=== PATIENT | female | born 1950 | race Caucasian/White ===

== ENCOUNTER → 2018-07-22 13:41 | Outpatient (CLI) | payer MEDICARE, OTHER, SELFPAY ==
--- NOTE | 2018-07-22 13:47 | ECHOD_ITS ---
Reason For Study: EXERTIONAL DYSPNEA Procedure This was a 2D Doppler, Color Flow transthoracic echocardiogram. Exam performed in department. Left Ventricle Normal size and thickness. The estimated ejection fraction is 65 %. Stage 2 diastolic dysfunction. No regional wall motion abnormalities noted. Right Ventricle Normal size and thickness. Normal systolic function. Atria Normal left atrium. Normal right atrium. Normal atrial septum. Mitral Valve The mitral valve is structurally normal. No prolapse or stenosis seen. Trivial mitral valve insufficiency. Tricuspid Valve Normal tricuspid valve. Trivial tricuspid valve insufficiency. Right ventricular systolic pressure estimated to be 34 mmHg. Aortic Valve Trisinus/trileaflet aortic valve. Mild diffuse aortic valve thickening. Trivial aortic valve insufficiency. Pulmonic Valve Normal pulmonic valve. Great Vessels Normal aortic root. Normal arch. The inferior vena cava is dilated. Inferior vena cava collapse with sniff. Pericardium/Pleural No pericardial effusion. MMode/2D Measurements & Calculations LVIDd: 3.9 cm IVSd: 0.72 cm Ao root diam: 2.6 cm LVIDs: 2.5 cm LVPWd: 0.81 cm LA dimension: 2.9 cm RVDd: 3.0 cm FS: 34.9 % LAV(MOD-bp): 43.3 ml LVAd ap4: 24.7 cm2 SV(MOD-sp4): 45.0 ml LAV(MOD-bp) Indexed: 25.5 ml/m2 EDV(MOD-sp4): 68.0 ml LAV(MOD-sp2): 41.4 ml EDV(sp4-el): 71.5 ml LAV(MOD-sp4): 37.4 ml LVAs ap4: 12.6 cm2 ESV(MOD-sp4): 23.0 ml ESV(sp4-el): 23.3 ml EF(MOD-sp4): 66.2 % EF(sp4-el): 67.4 % SV(sp4-el): 48.2 ml LA A4 area: 14.7 cm2 RA A4 area: 11.9 cm2 Time Measurements MV dec time: 0.17 sec Doppler Measurements & Calculations MV E max elieser: 125.2 cm/sec Lat Peak E' Elieser: 12.7 cm/sec Med Peak E' Elieser: 12.3 cm/sec MV A max elieser: 85.3 cm/sec E/E' lat: 9.9 E/E' med: 10.1 MV E/A: 1.5 Ao V2 max: 157.0 cm/sec LV V1 max: 126.6 cm/sec PA V2 max: 88.9 cm/sec Ao max P.9 mmHg LV V1 max P.4 mmHg TR max elieser: 262.3 cm/sec TR max P.6 mmHg Interpretation Summary The estimated ejection fraction is 65 %. Stage 2 diastolic dysfunction. Trivial mitral valve insufficiency. Right ventricular systolic pressure estimated to be 34 mmHg. There is no comparison study available. Ordering Physician: Toni Gallagher Referring Physician: FADY ROOT Performed By: Sharmaine Smith RDCS
== END ==
PROVIDERS: Family Provider Family Medicine; PCP Family Medicine; Visit Provider Surgery
DX: R06.09 Other forms of dyspnea (principal); I34.1 Nonrheumatic mitral (valve) prolapse
CPT/HCPCS: 93306

== ENCOUNTER → 2018-08-11 09:24 | Outpatient (CLI) | payer MEDICARE, OTHER, SELFPAY ==
--- NOTE | 2018-08-11 09:25 | STE_ITS ---
Stress Results Protocol: Williams Protocol Maximum Predicted HR: 153 bpm Target HR: 130 bpm% Max imum Predicted HR: 93 % DurationHeart Rate Stage (mm:ss) (bpm) BP BASELINE 68 144/58 STAGE 1 3:00 10 0 160/52 STAGE 2 3:00 11 7 180/40 STAGE 4 2:00 14 2 / RECOVERY 67 138/68 Stress Duration: 8:00 mm:ss Maximum Stress HR: 142 bpm Baseline Echocardiogram Findings The estimated ejection fraction is 65 %. Stress Echo Wall motion Data Resting WMIntermediate WMStress WM Resting Wall Motion No regional wall motion abnormalities noted. EKG Data The baseline ECG displays normal sinus rhythm. The patient exercised according to the regular Williams protocol for a total duration of 8:00. The maximum heart rate attained was 146 beats per minute. This was 95% of maximum predicted heart rate. The patient exercised into stage 3 of the Williams protocol. During stress, there were no ST or T wave changes noted to suggest ischemia. No clinical angina was noted. Interpretation Summary The estimated ejection fraction is 65 %. Normal, adequate, treadmill echocardiogram. Negative for ischemia by EKG and echocardiographic criteria. No anginal symptoms noted. Rare PACs noted during exercise and into recovery. Appropriate blood pressure response to exercise. Average exercise capacity for age. Test terminated due to the attainment of target heart rate and dyspnea. Final LVEF is 75%. No complications. Ordering Physician: Kwesi Chow Referring Physician: Kwesi Chow
== END ==
PROVIDERS: Family Provider Family Medicine; PCP Family Medicine; Referring Provider Internal Medicine Cardiovascular Disease; Visit Provider Internal Medicine Cardiovascular Disease
DX: I10 Essential (primary) hypertension (principal); R06.09 Other forms of dyspnea
CPT/HCPCS: 93017; 93350

== ENCOUNTER 2018-10-21 08:24 | Day surgery (SDC) | payer MEDICARE, OTHER, SELFPAY ==
[2018-10-14 10:09] VITALS: BP 134/73; PULSE 58; RESP 16; TEMP 36.1; O2SAT 97; BMI 22.2
[2018-10-14 10:33] LABS: Hematocrit 39.4 % (37-47); Hemoglobin 12.8 g/dl (12.0-15.0); Mean Corp Hgb Conc 32.5 g/gl (32-36); Mean Corpuscular Hgb 29.2 pg (27.0-32.0); Mean Platelet Vol. 10.1 fl (6.2-12.0); Platelet Count 176 K/mm3 (150-450); RBC Distribution Width CV 13.9 % (11.6-14.6); Red Blood Count 4.38 M/mm3 (4.2-5.4); White Blood Count 4.6 K/mm3 (4.4-11.0)
[2018-10-14 10:36] LABS: Scan Indicated on CBC? Y/N NO
[2018-10-14 10:42] LABS: Anion Gap 4 (5-15); BUN 9 mg/dL (7-18); BUN/Creat Ratio 12.1 RATIO (10-20); Calcium,Total 8.9 mg/dL (8.5-10.1); Chloride 98 mmol/L (98-107); Creatinine, Serum 0.74 mg/dL (0.55-1.02); EST Glomerular Filtration Rate 83 mL/min (>60); Est Glom Filt Rate - Afr Amer 100 mL/min (>60); Estimated Creatinine Clearance 53.09 ml/min; Glucose 97 mg/dL (74-106); Potassium 4.3 mmol/L (3.5-5.1); Sodium Level 132 mmol/L (136-145)
--- NOTE | 2018-10-19 12:32 | HP.PCM_ITS ---
Problem List (1) Varicose veins with inflammation Status: Chronic (2) Leg pain Status: Chronic Qualifiers: Laterality: left Qualified Code(s): M79.605 - Pain in left leg (3) Venous insufficiency (chronic) (peripheral) Status: Chronic History of Present Illness Date of Admission: 10/21/18 Chief Complaint: Chronic venous insufficiency, varicose veins with inflammation, leg pain?left lower extremity The patient is a 68 year old F with a long-standing history of chronic venous insufficiency, varicose veins with inflammation, and leg pain involving her left lower extremity. For many years, the patient has had pain, aching, discomfort, burning, and stinging in her left lower extremity. Her symptoms have become increasingly more severe. The patient denies a history of thrombophlebitis. She underwent bilateral lower extremity vein stripping in the , though the specific nature of the procedure is uncertain. 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 The implications of this diagnosis have been discussed with patient in detail. The options of management have been fully explained. Conservative treatment measures have been implemented, which have included leg elevation, avoidance of idle standing and sitting, graduated compression stockings, weight control measures, active lifestyle, [id number] analgesics, etc. Despite these measures, the patient has remained symptomatic, with symptoms which have adversely affected her daily activities, quality of life, and job functions.] Past Medical History Past Medical History (Chronic Problems): Chronic Problems (Last Reviewed 08/05/18 @ 10:31 by Hyacinth Mckinnon) Varicose veins with inflammation (Chronic) Leg pain (Chronic) Venous insufficiency (chronic) (peripheral) (Chronic) Hypertension (Chronic) Mitral valve insufficiency (Chronic) Trivial per echo 07/22/2018, RVSP 34 mmhg Diastolic dysfunction (Chronic) Stage II per echo 07/22/2018 Medical History: Medical History (Last Reviewed 08/05/18 @ 10:31 by Hyacinth Mckinnon) Venous insufficiency (chronic) (peripheral) (Chronic) I87.2 Hypertension (Chronic) I10 Mitral valve insufficiency (Chronic) I34.0 Trivial per echo 07/22/2018, RVSP 34 mmhg Diastolic dysfunction (Chronic) I51.9 Stage II per echo 07/22/2018 Dyspnea on exertion (Acute) R06.09 History of hysterectomy Z90.710 Allergies codeine Adverse Reaction (Severe, Verified 10/14/18 09:52) Severe headaches Home Medications: Ambulatory Orders Medication Instructions Recorded atenolol 50 mg tablet 50 mg PO DAILY 08/05/18 cholecalciferol (vitamin D3) 1,000 1,000 unit PO DAILY 08/05/18 unit tablet Aspirin [Aspirin, Baby] 81 mg PO DAILY@0800 10/14/18 Surgical History: Surgical History (Last Reviewed 08/05/18 @ 10:31 by Hyacinth Mckinnon) History of breast surgery Z98.890 History of tonsillectomy Z90.89 Surgical History: hysterectomy, tonsillectomy, - - Right breast biopsy; the patient is a Ab0. 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 Smoking Status: Never smoker Tobacco Use: Non-smoker Alcohol: None Drugs: None Review of Systems Constitutional: Denies: Chills, Fever, Weight Change HEENT: Denies: Head Aches, Sinus Congestion, Sinus Drainage Cardiovascular: Denies: Chest Pain, Palpitations Respiratory: Denies: Cough, Shortness of breath at rest, Sputum production Gastrointestinal: Denies: Abdominal Pain, Nausea, Vomiting Genitourinary: Denies: Dysuria Musculoskeletal: Denies: Joint Pain, Joint Tenderness Skin: Denies: Rash, Wounds Neurological: Denies: Numbness, Tingling, Focal weakness Psychiatric: Denies: Anxiety, Depression, Homicidal Ideations, Suicidal Ideations Hematologic/ Lymphatic: Denies: Easy Bruising, Easy Bleeding VTE Information - Inpt Only VTE Present on Admission: No VTE Mechan Device Prophylaxis: SCD's - Right VTE Pharm Prophylaxis ordered?: Yes - Physical Exam General: Alert, Oriented x3, Cooperative, No apparent distress, Well developed, Well nourished HEENT: Atraumatic, PERRLA, EOMI, Normocephalic Oral: Moist Mucosa, No Gingival or Mucosal Lesions/ Ulcerations Neck: Supple, No JVD, Negative Carotid Bruits, No Nodes, No Nuchal Rigidity, Trachea Midline Lungs: Clear to auscultation, Normal air movement, No rhonchi, No wheeze, No rales Cardiovascular: Regular rate, Regular Rhythm, Normal S1, Normal S2, No murmurs Abdomen: Bowel Sounds Present, Soft, Non Tender Extremities: No clubbing, No cyanosis, No edema, Capillary Refill Less than 3 Seconds, No Calf Tenderness, - - Full range of motion; peripheral extremities are warm and well-perfused; multiple large varicosities are noted in the lower extremities bilaterally Skin: No rashes, No breakdown Musculoskeletal: No Tenderness to Palpation of Joints or Extremities Neurological: Cranial nerves II-XII grossly intact, Neuro grossly intact Psych/Mental Status: Normal Affect, Appropriate, Alert and oriented to time, place, person, mood and affect Vital Signs Temp Pulse Resp BP Pulse Ox 97 F L 58 L 16 134/73 H 97 10/14/18 10:10/14/18 10:10/14/18 10:10/14/18 10:10/14/18 10:09 Oxygen Delivery Method Room Air Weight: 142 lb 3.17 oz Body Mass Index (BMI) 22.2 Assessment/Plan All Active Problems (Last Reviewed 08/05/18 @ 10:31 by Hyacinth Mckinnon) Dyspnea on exertion (Acute) Impression: This is a 68-year-old female with a long-standing history of chronic venous insufficiency, varicose veins with inflammation, and leg pain involving her left lower extremity. Despite conservative treatment measures, the patient has remained symptomatic, with symptoms which have adversely affected her daily activities, quality of life, and job functions. The indications and risks of endovenous laser ablation of the left great saphenous vein and the left small s aphenous vein have been discussed with the patient in detail. Plan: This 68-year-old female is to be admitted electively for the purpose of endovenous laser ablation of the left great saphenous vein and the left small saphenous vein. The indications and risks of the procedure have been discussed with the patient in detail. The preprocedure consent process has been undertaken.
[2018-10-21 09:06] VITALS: BP 148/64; PULSE 56; RESP 16; TEMP 36.2; O2SAT 100; BMI 22.2
[2018-10-21] MEDS: Enoxaparin 30 MG/0.3 ML Syringe SC (09:12)
[2018-10-21] MEDS: Cefazolin 2 GM in 0.9% Normal Saline 100 ML IV (10:45)
--- NOTE | 2018-10-21 12:20 | PCM.DCVENO ---
Discharge Diet: No Restrictions Discharge Activity: May Not Drive May shower in (days): 2 Weight Bearing Status: Weight bearing as tolerated Lifting Restrictions: 10 pounds Keep extremity elevated above heart level: Left Leg Call your doctor if you observe: Shortness of breath, Dizziness, Fainting spells, Chest pain, Prolonged hiccoughing, Increased palpitations (irregular heartbeat), Uncontrolled pain Suture Line Care: Avoid Pulling/Pushing Remove Dressing in (days):: 2 - Then rewrap daily from base of toes to upper thigh. Allergies/Adverse Reactions: Allergies codeine Adverse Reaction (Severe, Verified 10/14/18 09:52) Severe headaches Medications to take at Discharge atenolol 50 mg tablet 50 mg PO DAILY 08/05/18 cholecalciferol (vitamin D3) 1,000 unit tablet 1,000 unit PO DAILY 08/05/18 Aspirin [Aspirin, Baby] 81 mg PO DAILY@0800 10/14/18 Primary Care Physician: Joanne Lanza [Primary Care Provider] - Test Results: Test results from this visit will be discussed in further detail at your follow-up appointment, if applicable. Please Follow Up With: Toni Gallagher MD When: 7-14 days
--- NOTE | 2018-10-21 12:23 | DCINST_ITS ---
Discharge Diet: No Restrictions Discharge Activity: May Not Drive May shower in (days): 2 Weight Bearing Status: Weight bearing as tolerated Lifting Restrictions: 10 pounds Keep extremity elevated above heart level: Left Leg Call your doctor if you observe: Shortness of breath, Dizziness, Fainting spells, Chest pain, Prolonged hiccoughing, Increased palpitations (irregular heartbeat), Uncontrolled pain Suture Line Care: Avoid Pulling/Pushing Remove Dressing in (days):: 2 - Then rewrap daily from base of toes to upper thigh. Allergies/Adverse Reactions: Allergies codeine Adverse Reaction (Severe, Verified 10/14/18 09:52) Severe headaches Medications to take at Discharge atenolol 50 mg tablet 50 mg PO DAILY 08/05/18 cholecalciferol (vitamin D3) 1,000 unit tablet 1,000 unit PO DAILY 08/05/18 Aspirin [Aspirin, Baby] 81 mg PO DAILY@0800 10/14/18 Primary Care Physician: Joanne Lanza [Primary Care Provider] - Test Results: Test results from this visit will be discussed in further detail at your follow- up appointment, if applicable. Please Follow Up With: Toni Gallagher MD When: 7-14 days
--- NOTE | 2018-10-21 12:23 | PCM.IMDPSTOP ---
Problem List (1) Varicose veins with inflammation Status: Chronic (2) Leg pain Status: Chronic Qualifiers: Laterality: left Qualified Code(s): M79.605 - Pain in left leg (3) Venous insufficiency (chronic) (peripheral) Status: Chronic Immediate Post-Op Note Date of Procedure: 10/21/18 Primary Surgeon/Physician: Toni Gallagher authorization coordinator: None Pre-Operative Diagnosis: Chronic venous insufficiency, Varicose veins with inflammation, Leg pain - Left lower extremity Post-Operative Diagnosis: Chronic venous insufficiency, Varicose veins with inflammation, Leg pain - Left lower extremity Surgery/Procedure Performed:: 1. EVLA of left great saphenous vein. 2. EVLA of left small saphenous vein Description of Surgical Findings:: As above Estimated Blood Loss: Minimal Specimen's removed: None Drains: None Type of Anesthesia:: General, Tumescent - Admit VTE Documentation VTE Present on Admission: No VTE Mechan Device Prophylaxis: SCD's - Right VTE Pharm Prophylaxis ordered?: Yes
[2018-10-21 12:26] VITALS: BP 127/71; BP 148/64; PULSE 71; RESP 16; TEMP 35.8; O2SAT 99
--- NOTE | 2018-10-21 12:27 | OP.PN_ITS ---
Problem List (1) Varicose veins with inflammation Status: Chronic (2) Leg pain Status: Chronic Qualifiers: Laterality: left Qualified Code(s): M79.605 - Pain in left leg (3) Venous insufficiency (chronic) (peripheral) Status: Chronic Immediate Post-Op Note Date of Procedure: 10/21/18 Primary Surgeon/Physician: Toni Gallagher coiled tubing operator: None Pre-Operative Diagnosis: Chronic venous insufficiency, Varicose veins with inflammation, Leg pain - Left lower extremity Post-Operative Diagnosis: Chronic venous insufficiency, Varicose veins with inflammation, Leg pain - Left lower extremity Surgery/Procedure Performed:: 1. EVLA of left great saphenous vein. 2. EVLA of left small saphenous vein Description of Surgical Findings:: As above Estimated Blood Loss: Minimal Specimen's removed: None Drains: None Type of Anesthesia:: General, Tumescent - Admit VTE Documentation VTE Present on Admission: No VTE Mechan Device Prophylaxis: SCD's - Right VTE Pharm Prophylaxis ordered?: Yes
[2018-10-21 12:30] VITALS: BP 126/73; BP 148/64; PULSE 72; PULSE 73; RESP 16; O2SAT 100; O2SAT 99
[2018-10-21 12:45] VITALS: BP 123/69; BP 148/64; PULSE 63; RESP 16; O2SAT 100
[2018-10-21 13:10] VITALS: BP 127/69; BP 148/64; PULSE 62; RESP 16; TEMP 36.1; O2SAT 100
[2018-10-21 13:53] VITALS: BP 148/64
--- NOTE | 2018-10-25 08:41 | OP.PCM_ITS ---
Problem List (1) Varicose veins with inflammation Status: Chronic (2) Leg pain Status: Chronic Qualifiers: Laterality: left Qualified Code(s): M79.605 - Pain in left leg (3) Venous insufficiency (chronic) (peripheral) Status: Chronic Report of Operation Date of Procedure: 10/21/18 Pre-Operative Diagnosis: Chronic venous insufficiency, Varicose veins with inflammation, Leg pain - Left lower extremity Post-Operative Diagnosis: Chronic venous insufficiency, Varicose veins with inflammation, Leg pain - Left lower extremity Surgery/Procedure Performed:: 1. EVLA of left great saphenous vein. 2. EVLA of left small saphenous vein Description of Surgical Findings:: As above press catcher: None Type of Anesthesia:: General, Tumescent Specimen's removed: None Drains: None Estimated Blood Loss (mL): Minimal Description of Procedure: The patient underwent ultrasound marking of the left great saphenous vein and the left small saphenous vein preoperatively. She was then brought to the operating room suite, placed supine upon the operating room table, following which general anesthesia was administered by the anesthesia staff. The patient's left lower extremity and left groin were prepped and draped in appropriate sterile manner. The patient was placed in reverse Trendelenburg position. Ultrasonography was used to image the left great saphenous vein in the distal calf. The micropuncture technique was used to access the left great saphenous vein percutaneously in the distal calf. In this manner, a 0.018 inch guidewire was advanced intraluminally into the left great saphenous vein, and was visualized by ultrasonography. A micropuncture sheath was advanced over the guidewire. The 0.018 inch guidewire was exchanged for a 0.035 inch guidewire, which was then advanced intraluminally to a level just distal to the left sapheno?femoral junction. This was confirmed by ultrasound imaging. A long 4 Hungarian sheath was then advanced over the guidewire, and its tip was positioned approximately 2-2-1/2 cm distal to the left sapheno?femoral junction. Attention was then directed to the incompetent left small saphenous vein. To enhance exposure, the left lower extremity was placed in an externally rotated position with the left knee flexed. Using ultrasound imaging and the mi cropuncture technique, a micropuncture sheath was introduced intraluminally into the left small saphenous vein near the inferior border of the left gastrocnemius muscle, and was left in place, capped, for subsequent access purposes. Attention was then redirected to the long 4 Hungarian sheath which had been previously placed intraluminally within the left great saphenous vein. Perivenous tumescent anesthesia was injected from the 4 Hungarian sheath exit site up to the left sapheno?femoral junction. This was performed segmentally using ultrasound imaging. The AngioDynamics laser fiber was then introduced into the 4 Hungarian sheath and coupled appropriately. Ultrasonography was used to confirm that the tip of the laser fiber was positioned within the left great saphenous vein approximately 2-2-1/2 cm distal to the left sapheno-femoral junction. The patient was placed in Trendelenburg position and the laser fiber was activated. The AngioDynamics laser was slowly withdrawn at a constant rate throughout the length of the left great saphenous vein, thereby ablating the left great saphenous vein segmentally. The energy applied was approximately 60- 80 J/cm. Following the laser fiber ablation, the laser fiber and sheath were removed, and manual pressure was briefly applied to the percutaneous access site to achieve hemostasis. Attention was directed to the micropuncture sheath which had been previously placed intraluminally within the left small saphenous vein. A 0.035 inch guidewire was introduced intraluminally and its tip was positioned within the proximal portion of the left small saphenous vein. The long 4 Hungarian sheath was then advanced over the guidewire and into position intraluminally within the left small saphenous vein. Perivenous tumescent anesthesia was injected from the 4 Hungarian sheath exit site up to the tip of the sheath in the proximal left small saphenous vein. This was performed segmentally using ultrasound imaging. The AngioDynamics laser fiber was then introduced into the 4 Hungarian sheath and coupled appropriately. Ultrasonography was used to confirm that the tip of the laser fiber was positioned within the left small saphenous vein with its tip several centimeters distal to the junction with the deep venous system, and remaining within the superficial portion of the left small saphenous vein. The patient was placed in Trendelenburg position and the laser fiber was activated. The AngioDynamics laser was slowly withdrawn at a constant rate throughout the length of the left small saphenous vein, thereby ablating the left small saphenous vein segmentally. The energy applied was approximately 60- 80 J/cm. Following the laser ablation, the laser fiber and sheath were removed, and manual pressure was briefly applied to the percutaneous access site to achieve hemostasis. After assuring satisfactory hemostasis, the access sites were approximated using Cavilon and Steri-Strips. Dry sterile gauze dressings were applied over each of the access sites, and the leg was wrapped from the base of the toes to the upper thigh with Kerlix, followed by Adonay wrap. The blood loss for the procedure was minimal. The sponge, needle, and instrument counts at the end of the procedure were correct. The patient tolerated the procedure well, and was transported from the operating room to the post-anesthesia care unit in stable condition. The amount of tumescent anesthesia utilized, number of joules applied, and treatment times were recorded separately. - Complications None - Admit VTE Documentation VTE Present on Admission: No VTE Mechan Device Prophylaxis: SCD's - Right VTE Pharm Prophylaxis ordered?: Yes
--- OUTSIDE RECORDS SUMMARY | 2018-12-07 01:23 | XMS RPT_ITS ---
:1950 Author Organization OHIP Care Team Providers Name Role Phone Joanne Root Attending Unavailable Longsdorf, Joanne A Primary Care Unavailable Longsdorf, Joanne A Admitting Unavailable Longsdorf, Joanne A Attending Unavailable Longsdorf, Joanne A Primary Care Unavailable Longsdorf, Joanne A Admitting Unavailable Longsdorf, Joanne A Attending Unavailable Longsdorf, Joanne A Primary Care Unavailable Kwesi Chow Admitting Unavailable Kwesi Chow Attending Unavailable Longsdorf, Joanne A Primary Care Unavailable NewRobert manning Admitting Unavailable Robert Menendez Attending Unavailable Longsdorf, Joanne A Primary Care Unavailable Longsdorf, Joanne A Attending Unavailable Longsdorf, Joanne A Primary Care Unavailable LONGSDORF, JOANNE A Attending Unavailable MAMMOGRAPHY-ERICA, SELF-REQUESTED Referring Unavailable IVETT, JOANNE A Primary Care Unavailable Elliott, Toni Attending Unavailable Bello, Toni Referring Unavailable LONGSDORF, JOANNE Primary Care Unavailable Kwesi Chow Attending Unavailable LONGSDORF, JOANNE Referring Unavailable Chow, Kwesi Attending Unavailable Chow, Kwesi Referring Unavailable LONGSDORF, JOANNE Primary Care Unavailable Chow, Kwesi Attending Unavailable Chow, Kwesi Referring Unavailable LONGSDORF, JOANNE Primary Care Unavailable Kwesi Chow Consulting Unavailable Kwesi Chow Attending Unavailable Bello, Toni Referring Unavailable Bello, Toni Attending Unavailable Bello, Toni Referring Unavailable LONGSDORF, JOANNE Primary Care Unavailable PROBLEMS PROBLEMS DATE TYPE CONDITION / CODE ATTENDING STATUS SOURCE 08/11/2018 Unknown I10 - Essential Kwesi Chow Active [place] (primary) [facility] hypertension / Hospital I10(ICD-10) Repository 08/05/2018 Unknown I51.9 - Heart Kwesi Chow Active [place] disease, [facility] unspecified / Hospital I51.9(ICD-10) Repository 08/18/2018 Unknown R06.09 - Other Kwesi Chow Active [place] forms of dyspnea / [facility] R06.09(ICD-10) Hospital Repository 12/21/2017 Admitting Encounter for IVETT, Active [facility] diagnosis screening JOANNE Chao [place] mammogram for [facility] malignant neoplasm Center of breast / Repository Z12.31(ICD-10) PROCEDURES PROCEDURES No Procedure Records FoundRESULTS RESULTS OPERATIVE REPORT Observed: 10/25/2018 Status: F Source: BIVALVE 8:42 AM [facility] REPOSITORY [facility] Medical Records Department [address] [place] [address] Operative Report 10/25/18 0829 MR#: [id number] Acct: [id number] Name: JUANCHO YANEZ Rep #: [id number] : 1950 68 From: Toni Bello MD PCP: JOANNE ROOT Status: [facility] [place] [facility] [place] Problem List (1) Varicose veins with inflammation Status: Chronic (2) Leg pain Status: Chronic Qualifiers: Laterality: left Qualified Code(s): M79.605 - Pain in left leg (3) Venous insufficiency (chronic) (peripheral) Status: Chronic Report of Operation Date of Procedure: 10/21/18 Pre-Operative Diagnosis: Chronic venous insufficiency, Varicose veins with inflammation, Leg pain - Left lower extremity Post-Operative Diagnosis: Chronic venous insufficiency, Varicose veins with inflammation, Leg pain - Left lower extremity Surgery/Procedure Performed:: 1. EVLA of left great saphenous vein. 2. EVLA of left small saphenous vein Description of Surgical Findings:: As above ladle mechanic: None Type of Anesthesia:: General, Tumescent Specimen's removed: None Drains: None Estimated Blood Loss (mL): Minimal Description of Procedure: The patient underwent ultrasound marking of the left great saphenous vein and the left small saphenous vein preoperatively. She was then brought to the operating room suite, placed supine upon the operating room table, following which general anesthesia was administered by the anesthesia staff. The patient's left lower extremity and left groin were prepped and draped in appropriate sterile manner. The patient was placed in reverse Trendelenburg position. Ultrasonography was used to image the left great saphenous vein in the distal calf. The micropuncture technique was used to access the left great saphenous vein percutaneously in the distal calf. In this manner, a 0.018 inch guidewire was advanced intraluminally into the left great saphenous vein, and was visualized by ultrasonography. A micropuncture sheath was advanced over the guidewire. The 0.018 inch guidewire was exchanged for a 0.035 inch guidewire, which was then advanced intraluminally to a level just distal to the left sapheno femoral junction. This was confirmed by ultrasound imaging. A long 4 [place] sheath was then advanced over the guidewire, and its tip was positioned approximately 2-2-1/2 cm distal to the left sapheno femoral junction. Attention was then directed to the incompetent left small saphenous vein. To enhance exposure, the left lower extremity was placed in an externally rotated position with the left knee flexed. Using ultrasound imaging and the micropuncture technique, a micropuncture sheath was introduced intraluminally into the left small saphenous vein near the inferior border of the left gastrocnemius muscle, and was left in place, capped, for subsequent access purposes. Attention was then redirected to the long 4 [place] sheath which had been previously placed intraluminally within the left great saphenous vein. Perivenous tumescent anesthesia was injected from the 4 [place] sheath exit site up to the left sapheno femoral junction. This was performed segmentally using ultrasound imaging. The AngioDynamics laser fiber was then introduced into the 4 [place] sheath and coupled appropriately. Ultrasonography was used to confirm that the tip of the laser fiber was positioned within the left great saphenous vein approximately 2-2-1/2 cm distal to the left sapheno-femoral junction. The patient was placed in Trendelenburg position and the laser fiber was activated. The AngioDynamics laser was slowly withdrawn at a constant rate throughout the length of the left great saphenous vein, thereby ablating the left great saphenous vein segmentally. The energy applied was approximately 60-80 J/cm. Following the laser fiber ablation, the laser fiber and sheath were removed, and manual pressure was briefly applied to the percutaneous access site to achieve hemostasis. Attention was directed to the micropuncture sheath which had been previously placed intraluminally within the left small saphenous vein. A 0.035 inch guidewire was introduced intraluminally and its tip was positioned within the proximal portion of the left small saphenous vein. The long 4 [place] sheath was then advanced over the guidewire and into position intraluminally within the left small saphenous vein. Perivenous tumescent anesthesia was injected from the 4 [place] sheath exit site up to the tip of the sheath in the proximal left small saphenous vein. This was performed segmentally using ultrasound imaging. The AngioDynamics laser fiber was then introduced into the 4 [place] sheath and coupled appropriately. Ultrasonography was used to confirm that the tip of the laser fiber was positioned within the left small saphenous vein with its tip several centimeters distal to the junction with the deep venous system, and remaining within the superficial portion of the left small saphenous vein. The patient was placed in Trendelenburg position and the laser fiber was activated. The AngioDynamics laser was slowly withdrawn at a constant rate throughout the length of the left small saphenous vein, thereby ablating the left small saphenous vein segmentally. The energy applied was approximately 60-80 J/cm. Following the laser ablation, the laser fiber and sheath were removed, and manual pressure was briefly applied to the percutaneous access site to achieve hemostasis. After assuring satisfactory hemostasis, the access sites were approximated using Cavilon and Steri-Strips. Dry sterile gauze dressings were applied over each of the access sites, and the leg was wrapped from the base of the toes to the upper thigh with Kerlix, followed by Adonay wrap. The blood loss for the procedure was minimal. The sponge, needle, and instrument counts at the end of the procedure were correct. The patient tolerated the procedure well, and was transported from the operating room to the post-anesthesia care unit in stable condition. The amount of tumescent anesthesia utilized, number of joules applied, and treatment times were recorded separately. - Complications None - Admit VTE Documentation VTE Present on Admission: No VTE Mechan Device Prophylaxis: SCD's - Right VTE Pharm Prophylaxis ordered?: Yes 10/25/18 0842 <Electronically signed by Toni Bello MD> Date Toni Bello MD CC: JOANNE ROOT; Toni Bello MD Signed DISCHARGE INSTRUCTION Observed: 10/21/2018 Status: F Source: BIVALVE 12:23 PM [facility] REPOSITORY [facility] Medical Records Department [address] [place] [id number] Instructions for Home/Discharge Instructions 10/21/18 1220 MR#: [id number] Acct: [id number] Name: JUANCHO YANEZ Rep #: [id number] : 1950 68 From: Toni Bello MD PCP: JOANNE ROOT Status: [place] [facility] [place] Discharge Diet: No Restrictions Discharge Activity: May Not Drive May shower in (days): 2 Weight Bearing Status: Weight bearing as tolerated Lifting Restrictions: 10 pounds Keep extremity elevated above heart level: Left Leg Call your doctor if you observe: Shortness of breath, Dizziness, Fainting spells, Chest pain, Prolonged hiccoughing, Increased palpitations (irregular heartbeat), Uncontrolled pain Suture Line Care: Avoid Pulling/Pushing Remove Dressing in (days):: 2 - Then rewrap daily from base of toes to upper thigh. Allergies/Adverse Reactions: Allergies codeine Adverse Reaction (Severe, Verified 10/14/18 09:52) Severe headaches Medications to take at Discharge atenolol 50 mg tablet 50 mg PO DAILY 08/05/18 cholecalciferol (vitamin D3) 1,000 unit tablet 1,000 unit PO DAILY 08/05/18 Aspirin [Aspirin, Baby] 81 mg PO DAILY@0800 10/14/18 Primary Care Physician: Joanne Root [Primary Care Provider] - Test Results: Test results from this visit will be discussed in further detail at your follow-up appointment, if applicable. Please Follow Up With: Toni Bello MD When: 7-14 days 10/21/18 1223 <Electronically signed by Toni Bello MD> Date Toni Bello MD CC: JOANNE ROOT HISTORY AND PHYSICAL Observed: 10/19/2018 Status: F Source: BIVALVE EXAM 12:41 PM [facility] REPOSITORY [facility] Medical Records Department [address] [facility] [address] History and Physical 10/19/18 1226 MR#: [id number] Acct: [id number] Name: JUANCHO YANEZ Rep #: [id number] : 1950 68 From: Toni Bello MD PCP: JOANNE ROOT Status: PRE [facility] [place] [facility] [place] Problem List (1) Varicose veins with inflammation Status: Chronic (2) Leg pain Status: Chronic Qualifiers: Laterality: left Qualified Code(s): M79.605 - Pain in left leg (3) Venous insufficiency (chronic) (peripheral) Status: Chronic History of Present Illness Date of Admission: 10/21/18 Chief Complaint: Chronic venous insufficiency, varicose veins with inflammation, leg pain left lower extremity The patient is a 68 year old F with a long-standing history of chronic venous insufficiency, varicose veins with inflammation, and leg pain involving her left lower extremity. For many years, the patient has had pain, aching, discomfort, burning, and stinging in her left lower extremity. Her symptoms have become increasingly more severe. The patient denies a history of thrombophlebitis. She underwent bilateral lower extremity vein stripping in the , though the specific nature of the procedure is uncertain. 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 The implications of this diagnosis have been discussed with patient in detail. The options of management have been fully explained. Conservative treatment measures have been implemented, which have included leg elevation, avoidance of idle standing and sitting, graduated compression stockings, weight control measures, active lifestyle, [id number] analgesics, etc. Despite these measures, the patient has remained symptomatic, with symptoms which have adversely affected her daily activities, quality of life, and job functions.] Past Medical History Past Medical History (Chronic Problems): Chronic Problems (Last Reviewed 08/05/18 @ 10:31 by Hyacinth Mckinnon) Varicose veins with inflammation (Chronic) Leg pain (Chronic) Venous insufficiency (chronic) (peripheral) (Chronic) Hypertension (Chronic) Mitral valve insufficiency (Chronic) Trivial per echo 07/22/2018, RVSP 34 mmhg Diastolic dysfunction (Chronic) Stage II per echo 07/22/2018 Medical History: Medical History (Last Reviewed 08/05/18 @ 10:31 by Hyacinth Mckinnon) Venous insufficiency (chronic) (peripheral) (Chronic) I87.2 Hypertension (Chronic) I10 Mitral valve insufficiency (Chronic) I34.0 Trivial per echo 07/22/2018, RVSP 34 mmhg Diastolic dysfunction (Chronic) I51.9 Stage II per echo 07/22/2018 Dyspnea on exertion (Acute) R06.09 History of hysterectomy Z90.710 Allergies codeine Adverse Reaction (Severe, Verified 10/14/18 09:52) Severe headaches Home Medications: Ambulatory Orders Medication Instructions Recorded Surgical History: Surgical History (Last Reviewed 08/05/18 @ 10:31 by Hyacinth Mckinnon) History of breast surgery Z98.890 History of tonsillectomy Z90.89 Surgical History: hysterectomy, tonsillectomy, - - Right breast biopsy; the patient is a Ab0. 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 Smoking Status: Never smoker Tobacco Use: Non-smoker Alcohol: None Drugs: None Review of Systems Constitutional: Denies: Chills, Fever, Weight Change HEENT: Denies: Head Aches, Sinus Congestion, Sinus Drainage Cardiovascular: Denies: Chest Pain, Palpitations Respiratory: Denies: Cough, Shortness of breath at rest, Sputum production Gastrointestinal: Denies: Abdominal Pain, Nausea, Vomiting Genitourinary: Denies: Dysuria Musculoskeletal: Denies: Joint Pain, Joint Tenderness Skin: Denies: Rash, Wounds Neurological: Denies: Numbness, Tingling, Focal weakness Psychiatric: Denies: Anxiety, Depression, Homicidal Ideations, Suicidal Ideations Hematologic/ Lymphatic: Denies: Easy Bruising, Easy Bleeding VTE Information - Inpt Only VTE Present on Admission: No VTE Mechan Device Prophylaxis: SCD's - Right VTE Pharm Prophylaxis ordered?: Yes - Physical Exam General: Alert, Oriented x3, Cooperative, No apparent distress, Well developed, Well nourished HEENT: Atraumatic, PERRLA, EOMI, Normocephalic Oral: Moist Mucosa, No Gingival or Mucosal Lesions/ Ulcerations Neck: Supple, No JVD, Negative Carotid Bruits, No Nodes, No Nuchal Rigidity, Trachea Midline Lungs: Clear to auscultation, Normal air movement, No rhonchi, No wheeze, No rales Cardiovascular: Regular rate, Regular Rhythm, Normal S1, Normal S2, No murmurs Abdomen: Bowel Sounds Present, Soft, Non Tender Extremities: No clubbing, No cyanosis, No edema, Capillary Refill Less than 3 Seconds, No Calf Tenderness, - - Full range of motion; peripheral extremities are warm and well-perfused; multiple large varicosities are noted in the lower extremities bilaterally Skin: No rashes, No breakdown Musculoskeletal: No Tenderness to Palpation of Joints or Extremities Neurological: Cranial nerves II-XII grossly intact, Neuro grossly intact Psych/Mental Status: Normal Affect, Appropriate, Alert and oriented to time, place, person, mood and affect Vital Signs Temp Pulse Resp BP Pulse Ox 97 F L 58 L 16 134/73 H 97 10/14/18 10:10/14/18 10:10/14/18 10:10/14/18 10:10/14/18 10:09 Oxygen Delivery Method Room Air Weight: 142 lb 3.17 oz Body Mass Index (BMI) 22.2 Assessment/Plan All Active Problems (Last Reviewed 08/05/18 @ 10:31 by Hyacinth Mckinnon) Dyspnea on exertion (Acute) Impression: This is a 68-year-old female with a long-standing history of chronic venous insufficiency, varicose veins with inflammation, and leg pain involving her left lower extremity. Despite conservative treatment measures, the patient has remained symptomatic, with symptoms which have adversely affected her daily activities, quality of life, and job functions. The indications and risks of endovenous laser ablation of the left great saphenous vein and the left small saphenous vein have been discussed with the patient in detail. Plan: This 68-year-old female is to be admitted electively for the purpose of endovenous laser ablation of the left great saphenous vein and the left small saphenous vein. The indications and risks of the procedure have been discussed with the patient in detail. The preprocedure consent process has been undertaken. 10/19/18 1241 <Electronically signed by Toni Bello MD> Date Toni Bello MD Cosigner Signature: Date (if applicable) CC: JOANNE ROOT; Toni Bello MD Signed CBC-COMPLETE BLOOD CNT Collected: 10/14/2018 Status: F Source: BIVALVE NO DIFF 10:20 AM [facility] REPOSITORY TYPE CODE TESTS RESULT OUT OF RANGE REFERENCE UNITS LAB L100.1000 4.4-11.0 K/mm3 Normal WBC 4.6 LAB L100.1200 4.2-5.4 M/mm3 Normal RBC 4.38 LAB L100.1300 12.0-15.0 g/dl Normal HGB 12.8 LAB L100.1400 37-47 % Normal HCT 39.4 LAB L100.1500 81-99 fL Normal MCV 90.0 LAB L100.1600 27.0-32.0 pg Normal MCH 29.2 LAB L100.1700 32-36 g/gl Normal MCHC 32.5 LAB L100.1810 11.6-14.6 % Normal RDW CV 13.9 LAB L100.1820 35.1-43.9 fl High RDW SD 46.0 LAB L100.1900 150-450 K/mm3 Normal PLT 176 LAB L100.2000 6.2-12.0 fl Normal MPV 10.1 Performed By: #### L100.0500, L500.2500 #### [facility] [address] [place], [address] BASIC METABOLIC Collected: 10/14/2018 Status: F Source: WHIT PROFILE (BMP) 10:20 AM [facility] REPOSITORY TYPE CODE TESTS RESULT OUT OF RANGE REFERENCE UNITS LAB L501.0100 74-106 mg/dL Normal GLU 97 Result Comment: Please note revised GLUCOSE reference range effective 2017. LAB L501.1000 7-18 mg/dL Normal BUN 9 LAB L501.1100 0.55-1.02 mg/dL Normal CREAT,SERUM 0.74 Result Comment: The validity of the calculated GFR AND GFRAA in patients over 70 years has not been determined. Clinical correlation is essential. LAB L501.1110 >60 mL/min Normal EST GFR 83 Result Comment: Non- GFR Calc LAB L501.1115 >60 mL/min Normal EST GFR - AA 100 Result Comment: GFR Calc LAB L501.1255 ml/min Normal Estimated CRCL 53.09 LAB L501.1300 10-20 RATIO Normal BUN/CRE 12.1 LAB L501.2200 8.5-10 mg/dL Normal .1 CA 8.9 LAB L501.5300 136-14 mmol/L Low 5 NA 132 LAB L501.5600 3.5-5. mmol/L Normal 1 K 4.3 LAB L501.5900 98-107 mmol/L Normal CL 98 LAB L501.6100 21.0-3 mmol/L Normal 2.0 CO2 30.0 LAB L501.6200 5-15 Low GAP 4 Performed By: #### L100.0500, L500.2500 #### [facility] [address] [place], [address] STRESS TEST ECHO W/O Observed: 08/12/2018 Status: F Source: WHIT CONTRAST 1:11 PM [facility] REPOSITORY [facility] Cardiovascular Services [address] [place] [address] Stress Test Echo w/o Contrast MR#: [id number] Acct: [id number] Name: JUANCHO YANEZ Rep #: [id number] : 1950 68 From: Kwesi Chow MD Primary Care: JOANNE ROOT Status: REG CLI Ordering Dr: Kwesi Chow MD Sex: F C Stress Results Protocol: Williams Protocol Maximum Predicted HR: 153 bpm Target HR: 130 bpm% Max imum Predicted HR: 93 % DurationHeart Rate Stage (mm:ss) (bpm) BP BASELINE 68 144/58 STAGE 1 3:00 10 0 160/52 STAGE 2 3:00 11 7 180/40 STAGE 4 2:00 14 2 / RECOVERY 67 138/68 Stress Duration: 8:00 mm:ss Maximum Stress HR: 142 bpm Baseline Echocardiogram Findings The estimated ejection fraction is 65 %. Stress Echo Wall motion Data Resting WMIntermediate WMStress WM Resting Wall Motion No regional wall motion abnormalities noted. EKG Data The baseline ECG displays normal sinus rhythm. The patient exercised according to the regular Williams protocol for a total duration of 8:00. The maximum heart rate attained was 146 beats per minute. This was 95% of maximum predicted heart rate. The patient exercised into stage 3 of the Williams protocol. During stress, there were no ST or T wave changes noted to suggest ischemia. No clinical angina was noted. Interpretation Summary The estimated ejection fraction is 65 %. Normal, adequate, treadmill echocardiogram. Negative for ischemia by EKG and echocardiographic criteria. No anginal symptoms noted. Rare PACs noted during exercise and into recovery. Appropriate blood pressure response to exercise. Average exercise capacity for age. Test terminated due to the attainment of target heart rate and dyspnea. Final LVEF is 75%. No complications. Ordering Physician: Kwesi Chow Referring Physician: Kwesi Chow 08/11/18 1155 Date Kwesi Chow MD CC: Kwesi Chow MD; JOANNE IVETT Date Dictated: 08/11/1834 Date Transcribed: 08/11/18 1155 Shrimp Packer: Signed [facility] PANEL Collected: 08/06/2018 Status: F Source: MUSLIM 7:54 AM [facility] REPOSITORY TYPE CODE TESTS RESULT OUT OF RANGE REFERENCE UNITS LAB 34229908(L 10-40 Int._Unit/L OINC) Normal ALT 28 LAB 45941465(L 10-42 Int._Unit/L OINC) Normal AST 28 LAB 64601378(L 3.2-5.0 G/DL OINC) Normal Albumin Lvl 4.2 LAB 61626881(L 2.0-4.0 G/DL OINC) Normal Globulin 2.9 LAB 34497300(L 1.1-1.9 ratio OINC) Normal A/G Ratio 1.4 LAB 58035264(L 42-121 Int._Unit/L OINC) Normal Alk Phos 49 LAB 66689951(L .00-.20 mg/dL OINC) Normal Bili Direct <.10 LAB 33420546(L OINC) Normal Bili Indirect >0.3 Result Comment: No established ranges available for the Indirect Biliruben. LAB 33412474(LOINC) 0.2-1.0 mg/dL Normal Bili Total 0.4 LAB 71623273(LOINC) 6.4-8.3 G/DL Normal Total Protein 7.1 Performed By: #### [id number] #### [facility] [address] [place] [address] LIPID PROFILE Collected: 08/06/2018 Status: F Source: MUSLIM 7:54 AM [facility] REPOSITORY TYPE CODE TESTS RESULT OUT OF RANGE REFERENCE UNITS LAB 20299111(LO 50-200 mg/dL INC) Normal Chol 184 Result Comment: TOTAL CHOLEESTEROL: <200 NORMAL 200 - 239 BORDERLINE HIGH >240 HIGH LAB 98014599(LOINC) >=41 mg/dL Normal HDL 74 LAB 92884839(LOINC) 0-130 mg/dL Normal LDL 100 Result Comment: <100 OPTIMAL 100-129 NEAR / ABOVE OPTIMAL 130-159 BORDERLINE HIGH 160-189 HIGH >190 VERY HIGH CALC LDL NOT VALID WHEN TRIGLYCERIDE IS >400 MG/DL LAB 57267666(LOINC) 35-150 mg/dL Normal Trig 50 Result Comment: <150 NORMAL 150-199 BORDERLINE HIGH 200-499 HIGH >500 VERY HIGH LAB 08529504([facility]) Normal VLDL 10 Performed By: #### [id number] #### [facility] [address] [place] [address] CARDIOLOGY VISIT Observed: 08/05/2018 Status: F Source: BIVALVE REPORT 3:04 PM [facility] REPOSITORY [facility] [address] [place] [address] OFFICE VISIT Date of Service: 08/05/18 MR#: [id number] Acct: [id number] Name: JUANCHO YANEZ Rep #: [id number] : 1950 Provider: Kwesi Chow MD Age/Sex: 68/F [place] [facility] Status: Signed HPI HPI Chief Complaint: Dyspnea on exertion Details: JUANCHO YANEZ, is a 68 F who presents to the office today for evaluation of possible pulmonary hypertension and referred from Dr. Toni Bello. Specifically the patient is a lifelong non-smoker, nondrinker, nondiabetic, who was diagnosed with mitral valve prolapse around age 41 by echocardiogram. She has recently been diagnosed with hypertension by her PCP and placed on atenolol. In addition apparently she underwent a venous ultrasound which suggested pulsatile flow in the venous system which may suggest elevated central venous pressure. Patient underwent a 2D echo with Doppler at [facility] on 07/22/18 which demonstrated an EF around 65%, stage II diastolic dysfunction, no evidence of mitral valve prolapse, trivial mitral regurgitation, and an RVSP estimated to be 34 mmHg. 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 She has complained of mild dyspnea on exertion for a number of years and has had increasing fatigue over the last year. She has had no presyncope, syncope, palpitations and does not complain of lower extremity edema. In our office today her blood pressure is 160/80, pulse is 64 and regular. Her physical exam demonstrates clear lungs bilaterally, regular rate and rhythm, normal S1/S2, no S3 or S4. She has no edema. Her lipids are pending. Stress echo is pending. EKG today demonstrates normal sinus rhythm, normal axis, normal intervals, no evidence of previous myocardial infarction and subtle J-point elevation in the anterior leads of unknown significance. Intake Vital Signs08/05/18 Height 5 ft 7 in 08/05/18 Weight: 139 lb 08/05/18 Body Mass Index (BMI) 21.7 08/05/18 Blood Pressure 160/80 H Intake Visit Reasons: MVP (DR BELLO) Allergies codeine Adverse Reaction (Severe, Verified 08/05/18 14:30) Severe headaches Medications aspirin 325 mg tablet 325 mg PO DAILY PRN 08/05/18 [History Confirmed 08/05/18] atenolol 50 mg tablet 50 mg PO DAILY 08/05/18 [History Confirmed 08/05/18] calcium-vitamin D3-vitamin K 500 mg-500 unit-40 mcg chewable tablet 2 tab PO DAILY tab 08/05/18 [History Confirmed 08/05/18] cholecalciferol (vitamin D3) 1,000 unit tablet 1,000 unit PO DAILY 08/05/18 [History Confirmed 08/05/18] ibuprofen 200 mg tablet 200 mg PO TID-QID PRN 08/05/18 [History Confirmed 08/05/18] [facility] Medical History Venous insufficiency (chronic) (peripheral) (Chronic) Hypertension (Chronic) Mitral valve insufficiency (Chronic) Diastolic dysfunction (Chronic) Dyspnea on exertion (Acute) Surgical History History of breast surgery (Chronic) History of hysterectomy (Chronic) History of tonsillectomy (Chronic) Family History Father CAD (coronary artery disease) Parkinson's disease Mother Cancer Blood disorder Social History Smoking Status: Never smoker ROS Const Const: Positive for other (Ref.by Dr. Bello,MVP, but echo sts trivial. StageII diastolic dysfunction); negative for fatigue, weakness, body ache, fever(s), headache(s), chills, frequent falls, night sweats, daytime sleepiness, difficulty sleeping, excessive sweating, weight gain, weight loss, increased appetite, poor appetite or anorexia Eyes Eyes: Negative for blind spots, loss of peripheral vision, transient loss of vision, blurry vision, change in vision, double vision, floaters, tunnel vision or other ENT ENT: Negative for headache(s), dizziness, hearing loss, tinnitus, Nosebleed/epistaxis, balance problems, post nasal drip, lip swelling, tongue swelling, bleeding gums, hoarseness, neck pain, dry mouth or other Cardio Chest Pain: No Palpitations: Yes feels like its: fast Edema: None Muscle aches with walking: None Resp Respiratory: Positive for SOB with activity (occasional); negative for SOB at rest, SOB orthopnea\SOB lying down, Coughing up blood/hemoptysis, chest congestion, pain on inspiration, snoring, stridor, wheezing, crackles, paroxysmal nocturnal dyspnea or other GI GI: Negative nausea, vomiting, heartburn, constipation, belching, bloating, cramping, vomiting blood/hematemesis, bright, red blood in stools, black,tarry stools, loose stools, Difficulty Swallowing or other : Negative for hematuria, frequent nighttime urination/ nocturia, erectile dysfunction or abnormal vaginal bleeding Musc Musc: Negative for balance problems, muscle aches/ myalgia, muscle weakness or joint pain Skin Skin: Negative redness, non-healing lesions, rash, unusual bruising, skin ulcer, wounds, jaundice or other Neuro Neuro: Negative for weakness, headache(s), frequent falls, blurry vision, double vision, dizziness, lightheadedness, near syncope, syncope, orthostatic symptoms, confusion, memory loss, restless legs, vertigo, seizures, lack of coordination or other Nelson Hematologic/Lymphatic: Negative for easy bleeding, easy bruising, enlarged lymph nodes or other Endo Endo: Negative for fatigue, excessive sweating, cold intolerance, heat intolerance, flushing, increased thirst/drinking, increased hunger, hair loss, hair growth or other Psych Psych: Negative for anxiety, depression, thoughts of harming anyone, thoughts of harming yourself, visual hallucinations, panic attacks or audible hallucinations Allergy Allergy/Immunology: Negative for lip swelling, Negative for tongue swelling, Negative for rash, Negative for throat swelling, Negative for hives Cardiology Exam Const Appearance: cooperative, healthy appearing and no acute distress Nutritional Appearance: well nourished Orientation: alert, oriented x3 and oriented to person Head Head: normal to inspection, atraumatic and normocephalic Nose: external nose normal Face and Sinus: face symmetric Mouth: oral mucosae normal Eyes General: appearance normal, both eyes and all related structures Eyelids: eyelids normal Conjunctivae: conjunctivae normal Pupils: PERRL and normal by confrontation EOM: EOM intact bilaterally Neck Neck: normal visual inspection and full ROM Carotids: normal carotid upstroke Chest Chest inspection: normal inspection of the chest Auscultation: Bilateral: Clear to Auscultation Cardio Palpation: normal PMI Rate: regular rate Rhythm: regular rhythm Heart sounds: S1 normal and S2 normal GI GI: normal to inspection, no hepatosplenomegaly and bowel sounds present Neuro General: alert, oriented x3, awake, CN's II-XI intact bilaterally and moves all extremities Skin Skin: no rashes or lesions noted Extremities Pulses: Normal: Right Femoral Pulse, Left Femoral Pulse, Right Dorsalis Pedis Pulse, Left Dorsalis Pedis Pulse, Right Posterior Tibial Pulse, Left Posterior Tibial Pulse, Right Radial Pulse, Left Radial Pulse Lower Extremity Edema: None: Bilateral Psych Psychological: normal affect Assessment AND Plan 1. Dyspnea on exertion R06.09 Plan 1. 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 Her echocardiogram shows normal LV function with normal right- sided pressures by indirect measurement. She also has trivial mitral regurgitation and no significant mitral valve prolapse noted. I recommend the patient undergo a treadmill echocardiogram to determine her exercise capacity, blood pressure response to exercise, and evaluate for ischemia. If this is grossly abnormal for ischemia, patient may require a left heart and probably a right heart catheterization to confirm or deny the presence of significant pulmonary hypertension. The patient has an excellent exercise capacity, I would not pursue catheterization at this time. She has no edema and has not had any in the past. Orders Orders: 2. Hypertension I10 Plan 2. Hypertension: Should the patient have a hypertensive blood pressure response to exercise, I would consider adding Hyzaar to assist with her stage II diastolic dysfunction for afterload reduction and diuretic therapy. 3. Hyperlipidemia: Recommend obtaining a fasting lipid profile for further risk stratification. 4. Return office in 6 months. This note was generated using a voice recognition system and there may be incorrect words, spelling or punctuation that were not noted when reviewing the office note prior to saving. Orders Orders: Plan Detail Other Orders Orders: Other Medications New: Discontinued: calcium carbonate (Antacid Extra Strength (calcium carb)) [id number] mg PO DAILY Reason: Order Changed Follow Up +6M (Geraldo) Coding Level of Care Code Off vis,new,level 4 Diagnoses Dyspnea on exertion R06.09 Hypertension I10 Coding Level of Care Code Off vis,new,level 4 Diagnoses Dyspnea on exertion R06.09 Hypertension I10 08/05/18 1504 <Electronically signed by Kwesi Chow MD> Date Kwesi Chow MD Cosigner Signature: Date (if applicable) CC: JOANNE ROOT 12 LEAD EKG PERFORMED Observed: 08/05/2018 Status: F Source: [place] [facility] 2:38 PM [facility] REPOSITORY [facility] [address] [place] [address] 12 Lead EKG performed by [facility] 08/05/18 1438 MR#: [id number] Acct: [id number] Name: JUANCHO YANEZ Rep #: [id number] : 1950 68 From: Kwesi Chow MD Attending Dr: Kwesi Chow MD Status: [facility] Ordering Dr: Kwesi Chow MD Date: 08/05/18 Location: [facility] Sex: F C Admitted: [facility]12 Lead EKG performed by [facility] ECG Report Interpretation Sinus Bradycardia - Negative precordial T-waves -Probably normal -consider anteroseptal ischemia. PROBABLY NORMAL FOR AGEElectronically signed on 10/22/2018 at 15:13 by Kwesi Chow Software Version [id number] 10/22/18 1516 Date Kwesi Chow MD CC: JOANNE ROOT Date Dictated: 08/05/181437 Date Transcribed: 08/05/181437 Shrimp Packer: Signed 12 LEAD EKG PERFORMED Observed: 08/05/2018 Status: F Source: [facility] BY B[facility] 2:20 PM [facility] REPOSITORY [facility] [address] [place] [address] 12 Lead EKG performed by [facility] 08/05/18 1419 MR#: [id number] Acct: [id number] Name: JUANCHO YANEZ Rep #: [id number] : 1950 68 From: Kwesi Chow MD Attending Dr: Kwesi Chow MD Status: DEP AMB Ordering Dr: Kwesi Chow MD Date: 08/05/18 Location: [facility] Sex: F C Admitted: BMS/12 Lead EKG performed by [facility] ECG Report Interpretation Sinus Bradycardia - Negative precordial T-waves -Probably normal -consider anteroseptal ischemia. PROBABLY NORMAL FOR AGEElectronically signed on 10/13/2018 at 11:37 by Husam Ames Software Version 8610 10/13/18 1146 Date Kwesi Chow MD CC: JOANNE ROOT Date Dictated: 08/05/181418 Date Transcribed: 08/05/18 141 Shrimp Packer: Signed ECHOCARDIOGRAM COMPLETE Observed: 07/22/2018 Status: F Source: [place] 4:31 PM [facility] REPOSITORY [facility] Cardiovascular Services [address] [place] [address] Echo Complete 07/22/18 1405 MR#: [id number] Acct: [id number] Name: JUANCHO YANEZ Rep #: [id number] : 1950 68 From: Kwesi Chow MD Attending Dr: Toni Bello MD Status: REG CLI Ordering Dr: Toni Bello MD Date: 07/22/18 Location: [facility] Sex: F C Admitted: Reason For Study: EXERTIONAL DYSPNEA Procedure This was a 2D Doppler, Color Flow transthoracic echocardiogram. Exam performed in department. Left Ventricle Normal size and thickness. The estimated ejection fraction is 65 %. Stage 2 diastolic dysfunction. No regional wall motion abnormalities noted. Right Ventricle Normal size and thickness. Normal systolic function. Atria Normal left atrium. Normal right atrium. Normal atrial septum. Mitral Valve The mitral valve is structurally normal. No prolapse or stenosis seen. Trivial mitral valve insufficiency. Tricuspid Valve Normal tricuspid valve. Trivial tricuspid valve insufficiency. Right ventricular systolic pressure estimated to be 34 mmHg. Aortic Valve Trisinus/trileaflet aortic valve. Mild diffuse aortic valve thickening. Trivial aortic valve insufficiency. Pulmonic Valve Normal pulmonic valve. Great Vessels Normal aortic root. Normal arch. The inferior vena cava is dilated. Inferior vena cava collapse with sniff. Pericardium/Pleural No pericardial effusion. MMode/2D Measurements AND Calculations LVIDd: 3.9 cm IVSd: 0.72 cm Ao root diam: 2.6 cm LVIDs: 2.5 cm LVPWd: 0.81 cm LA dimension: 2.9 cm RVDd: 3.0 cm FS: 34.9 % LAV(MOD-bp): 43.3 ml LVAd ap4: 24.7 cm2 SV(MOD-sp4): 45.0 ml LAV(MOD-bp) Indexed: 25.5 ml/m2 EDV(MOD-sp4): 68.0 ml LAV(MOD-sp2): 41.4 ml EDV(sp4-el): 71.5 ml LAV(MOD-sp4): 37.4 ml LVAs ap4: 12.6 cm2 ESV(MOD-sp4): 23.0 ml ESV(sp4-el): 23.3 ml EF(MOD-sp4): 66.2 % EF(sp4-el): 67.4 % SV(sp4-el): 48.2 ml LA A4 area: 14.7 cm2 RA A4 area: 11.9 cm2 Time Measurements MV dec time: 0.17 sec Doppler Measurements AND Calculations MV E max elieser: 125.2 cm/sec Lat Peak E' Elieser: 12.7 cm/sec Med Peak E' Elieser: 12.3 cm/sec MV A max elieser: 85.3 cm/sec E/E' lat: 9.9 E/E' med: 10.1 MV E/A: 1.5 Ao V2 max: 157.0 cm/sec LV V1 max: 126.6 cm/sec PA V2 max: 88.9 cm/sec Ao max P.9 mmHg LV V1 max P.4 mmHg TR max elieser: 262.3 cm/sec TR max P.6 mmHg Interpretation Summary The estimated ejection fraction is 65 %. Stage 2 diastolic dysfunction. Trivial mitral valve insufficiency. Right ventricular systolic pressure estimated to be 34 mmHg. There is no comparison study available. Ordering Physician: Toni Bello Referring Physician: JOANNE ROOT Performed By: Sharmaine Smith RDCS 07/22/18 1630 Date Kwesi Chow MD CC: JOANNE ROOT; Toni Bello MD Date Dictated: 07/22/18 1405 Date Transcribed: 07/22/18 1630 Shrimp Packer: Signed MAMMO SCREENING WITH Observed: 12/21/2017 Status: F Source: [facility] 12:[address] [facility] REPOSITORY EXAM: MAMMO SCREENING WITH TRISTA BILATERAL, 12/21/2017 10:39 AM CLINICAL INDICATIONS: Screening. Patient's had right benign excisional biopsy in 2012. COMPARISON: Mammogram December 19, 2016, 12/17/2015 and 12/15/2014 TECHNIQUE: 2-D MLO and CC views were obtained of the bilateral breasts. 3-D MLO and CC digital tomosynthesis images were also acquired. Computer aided detection was utilized. FINDINGS: The breasts have scattered areas of fibroglandular density. Postsurgical changes are noted in the subareolar right breast consistent with excisional benign biopsy. There are no new suspicious masses, calcifications, or architectural distortions. IMPRESSION: No specific mammographic evidence of malignancy. BI-RADS: 1: Negative Recommendation: Routine mammography. Recommendation Laterality: Bilateral BONE DENSITY DEXA Observed: 12/10/2017 Status: F Source: [place] 2:08 PM [facility] REPOSITORY Exam Date/Time: 12/10/2017 14:23 EST Reason for Exam: SCREENING FOR OSTEOPOROSIS;Menopausal Report BONE DENSITY (DEXA) HISTORY: Menopausal FINDINGS: Bone density analysis is performed through the lumbar spine and left hip. LUMBAR SPINE: BMD: 0.862 g/sq cm. T-score: -1.7 . HIP: BMD: 0.708 g/sq cm. T-score: -1.3. IMPRESSION: Osteopenia at both sites. No prior study. 10 year fracture risk: Major osteoporotic fracture 7.9%; hip fracture 0.8%. FINAL REPORT Dictated: 12/10/2017 5:01 pm Rajiv Pepper MD Signed (Electronic Signature): 12/10/2017 5:01 pm Signed by: Rajiv Pepper MD Technologist: ELAINA CBC W/ AUTO DIFF Collected: 12/10/2017 Status: F Source: [place] 7:41 AM [facility] REPOSITORY TYPE CODE TESTS RESULT OUT OF RANGE REFERENCE UNITS LAB 14686710(L 3.6-11.0 E3/mcL OINC) Normal WBC 6.3 LAB 34549706(L 3.90-5.40 E6/mcL OINC) Normal RBC 4.59 LAB 00142131(L 12.0-16.0 G/DL OINC) Normal Hgb 13.3 LAB 54876664(L 36.0-48.0 % OINC) Normal Hct 40.8 LAB 27048666(L 11.5-14.5 % OINC) Normal RDW 14.4 LAB 24908514(L 27.0-31.0 pg OINC) Normal MCH 29.0 LAB 92109133(L 33.0-37.0 G/DL OINC) Low MCHC 32.7 LAB 40403467(L 78.0-100.0 fL OINC) Normal MCV 88.9 LAB 01292585(L 7.4-11.0 fL OINC) Normal MPV 10.2 LAB 42926966(L 130-400 E3/mcL OINC) Normal Platelet 151 Performed By: #### [id number] #### KARISSA RemHemo [address] [place] [address] AUTO DIFF Collected: 12/10/2017 Status: F Source: [place] 7:41 AM [facility] REPOSITORY Order Comment: Order Added by Discern Expert. TYPE CODE TESTS RESULT OUT OF RANGE REFERENCE UNITS LAB 48401043(L 37.0-75.0 % OINC) Normal Neutro Auto 66.9 LAB 77368957(L 20.0-55.0 % OINC) Low Lymph Auto 19.9 LAB 27123908(L 0.0-10.0 % OINC) High [place]ford Auto 10.6 LAB 18164773(L 0.0-11.0 % OINC) Normal Eos Auto 2.3 LAB 62375296(L 0.0-2.0 % OINC) Normal Basophil Auto 0.3 LAB 75193141(L 1.4-6.5 E3/mcL OINC) Normal Neutro 4.2 Absolute LAB 29620080(L 1.2-3.4 E3/mcL OINC) Normal Lymph Absolute 1.3 LAB 76242167(L 0.0-0.7 E3/mcL OINC) Normal [place] Absolute 0.7 LAB 52448858(L 0.0-0.7 E3/mcL OINC) Normal Eos Absolute 0.1 LAB 44028523(L 0.0-0.2 E3/mcL OINC) Normal Basophil 0.0 Absolute Performed By: #### [id number] #### KARISSA Smith [address] [place] [address] CMP Collected: 12/10/2017 Status: F Source: [place] 7:41 AM [facility] REPOSITORY TYPE CODE TESTS RESULT OUT OF RANGE REFERENCE UNITS LAB 01670351(L 70-99 mg/dL OINC) Glucose Normal Lvl 94 LAB 13333429(L 8.4-10.2 mg/dL OINC) Calcium Normal Lvl 9.3 LAB 80946748(L 136-145 mEq/L OINC) Low Sodium Lvl 135 LAB 96453011(L 3.5-5.1 mEq/L OINC) Normal Potassium Lvl 3.9 LAB 44423927(L 98-107 mEq/L OINC) Chloride Normal 99 LAB 68197931(L 24.0-30.0 mEq/L OINC) CO2 Normal 29.0 LAB 79151296(L 7-18 mg/dL OINC) BUN Normal 13 LAB 0848719(LO 0.6-1.3 mg/dL INC) Normal Creatinine 0.7 LAB 03359248(L 42-121 Int._Unit/ OINC) L Alk Phos Normal 51 LAB 65988488(L 0.2-1.0 mg/dL OINC) Bili Normal Total 0.6 LAB 07905086(L 3.2-5.0 G/DL OINC) Albumin Normal Lvl 4.2 LAB 44717550(L 6.4-8.3 G/DL OINC) Total Normal Protein 7.0 LAB 38884518(L 10-40 Int._Unit/ OINC) L ALT Normal 20 LAB 69361135(L 10-42 Int._Unit/ OINC) L AST Normal 22 LAB 17348385(L 5.4-30.0 ratio OINC) Normal BUN/Creat Ratio 18.6 LAB 81595469(L 2.0-4.0 G/DL OINC) Globulin Normal 2.8 LAB 60080594(L 1.1-1.9 ratio OINC) A/G Normal Ratio 1.5 Performed By: #### [id number] #### KARISSA Vacunek [facility] [place] [address] EGFR Collected: 12/10/2017 Status: F Source: [place] 7:[address] [facility] REPOSITORY Order Comment: Order added by Discern Expert. TYPE CODE TESTS RESULT OUT OF RANGE REFERENCE UNITS LAB 90183434(LO mL/min/1.73 INC) m2 Normal eGFR >60 LAB 65382283(LO mL/min/1.73 INC) m2 Normal eGFR AA >60 Performed By: #### [id number] #### KARISSA Vacunek [facility] [place] [address] LIPID PROFILE Collected: 12/10/2017 Status: F Source: [place] 7:41 [facility] REPOSITORY TYPE CODE TESTS RESULT OUT OF RANGE REFERENCE UNITS LAB 39378586(LO 50-200 mg/dL INC) Normal Chol 191 Result Comment: TOTAL CHOLEESTEROL: <200 NORMAL 200 - 239 BORDERLINE HIGH >240 HIGH LAB 09127265(LOINC) >=41 mg/dL Normal HDL 80 LAB 82049240(LOINC) 0-130 mg/dL Normal LDL 101 Result Comment: <100 OPTIMAL 100-129 NEAR / ABOVE OPTIMAL 130-159 BORDERLINE HIGH 160-189 HIGH >190 VERY HIGH CALC LDL NOT VALID WHEN TRIGLYCERIDE IS >400 MG/DL LAB 54393717(LOINC) 35-150 mg/dL Normal Trig 50 Result Comment: <150 NORMAL 150-199 BORDERLINE HIGH 200-499 HIGH >500 VERY HIGH LAB 63470652(LOINC) Normal VLDL 10 Performed By: #### [id number] #### KARISSA [facility] [address] [place] [address] TSH Collected: 12/10/2017 Status: F Source: [place] 7:[address] [facility] REPOSITORY TYPE CODE TESTS RESULT OUT OF RANGE REFERENCE UNITS LAB 21543789(LO 0.30-5.60 mIU/m INC) Normal TSH 1.02 Performed By: #### [id number] #### KARISSA [facility] [address] [place] [address] ALLERGIES ALLERGIES DATE TYPE / CODE NAME / CODE REACTION SEVERITY SOURCE 10/14/2018 Drug codeine/K2393525 severe headaches SV Whit Allergy/416 50(RXNORM) [facility] 396979([facility]) Repository Drug/388661 codeine Headache Mu-Ism 003(SNOMED [facility]) System Repository Drug/295922 No Known Mu-Ism 003(SNOMED Allergies [facility]) System Repository ENCOUNTERS ENCOUNTERS ADMIT/DISCHARGE ACCOUNT NUMBER ADMITTING ENCOUNTER LOCATION SOURCE CLASS 11/11/2018 [id number] Ambulatory [facility] ding:[place] Repository nt Medic 10/21/2018/10/21/20 [id number] Ambulatory Whit [address] ding:[facility] Repository 10/13/2018/10/13/20 [id number] [facility] Robert García g:[facility] Repository 08/11/2018 [id number] Ambulatory BMSBuilding: [place] BMS.CF.[facility] Repository 08/11/2018 [id number] Ambulatory [facility] ding:[facility] Repository 08/06/2018/08/06/20 [id number] Geraldo [facility] 18 Kwesi [facility] ding:[facility] Repository 08/06/2018 [id number] Ambulatory [address] [place] [address] Repository 08/05/2018/08/05/20 [id number] Ambulatory BMSBuilding: Whit 18 BMS.[facility] Repository 07/22/2018 [id number] Ambulatory [facility] ding:[facility] Repository 07/22/2018 [id number] Ambulatory B[facility]: [facility] Repository 12/21/2017 [id number] Ambulatory Building:MLC [facility] Repository 12/10/2017/12/10/19 [id number] [facility], Ambulatory Mu-Ism Mu-Ism 18 Joanne A [facility] Regional ding:.[facility] Repository 12/10/2017/12/10/19 [id number] [facility], Ambulatory Mu-Ism Mu-Ism 18 Joanne A [facility] Regional ding:[facility] Repository 12/09/2017/12/09/19 [id number] Ambulatory [address] ding:[facility] Repository nt MedicRoom: Room 3 PAYERS PAYERS ENCOUNTER GUARANTOR PAYER SUBSCRIBER SOURCE 11/11/2018 JUANCHO DIGNINDOB: Primary JUANCHO DIGAINDOB: Mu-Ism Insurance:1500 [id number] [facility] [address] System [address] [place] [address] PRIMARYPolicy Number: [id number] [place] [address] Repository [address]Dqw: Effective [id number]: Date:2018-11-11 () [id number] ()Tel: (000) Name:CD:[id number] O 000-0000 () [address] [place] [id number]: 11/11/2018 Secondary SAUL Melendeztan Insurance:1500 DIGNINDOB: [facility] AUTOMATIC [id number] System [facility] Repository Number: Effective [address] [place], [place] Date:2018-11-11 - [id number]: 2100-12-31plan Name:[id number] () (WP) 10/21/2018 SAUL El Primary JUANCHO [place] [id number] CR Insurance:MEDICARE DIGNINDOB: Community [address] [place] [address] PART A olicy [id number] Hospital [address]Any: (419) Number: Repository [phone] () [id number] Date:2018-09-15 10/21/2018 Secondary SAUL C [place] Insurance:NATIONAL DIGNINDOB: Community AUTO [facility] [id number] Hospital Number: Repository [id number] Date: ISABEL BOST[place] [id number]: 10/21/2018 Tertiary NOT GIVENUNK Whit Insurance:SELF PAY [facility] Number: Effective Repository Date:2018-09-15 10/13/2018 JUANCHO DIGNINDOB: Primary JUANCHO DIGNINDOB: Mu-Ism Insurance:1500 [id number] [facility] [address] PRIMARYPolicy Number: [address] [place] [address] Repository [address]Com: Effective [address]Bic: Date:2018-10-13 () [id number] ()Tel: (000) Name:[id number] O 000-0000 () [address] [address]UN: 10/13/2018 Secondary SAUL El Mu-Ism Insurance:1500 DIGNINDOB: [facility] AUTOMATIC [id number] [place] [address] Repository Number: Effective [address] [place] [address] Date:2018-10-13 [address]Odr: [id number] Name:[id number] () (WP) 08/11/2018 SAUL C Primary RAVEN [place] [id number] CR Insurance:MEDICARE DIGNINDOB: [address] PART A [facility] [id number] Hospital [address]Wbv: (419) Number: Repository [phone] () [id number] Date:2018-08-05 08/11/2018 Secondary SAUL El Whit Insurance:NATIONAL DIGNINDOB: Community AUTO [facility] [id number] Hospital Number: Repository [id number] Date: ISABEL BOSTON [place] [id number]: 08/11/2018 Tertiary NOT GIVENUNK [place] Insurance:SELF [facility] Number: Effective Repository Date:2018-08-11 08/11/2018 SAUL El Primary RAVEN [place] [id number] CR Insurance:MEDICARE DIGNINDOB: [address] PART A [facility] [facility] [id number] 56729Vbd: [phone]) Number: Repository [phone] () [id number] Date:2018-08-05 08/11/2018 Secondary SAUL [place] Insurance:NATIONAL DIGNINDOB: [facility] [id number] Hospital Number: Repository [id number] Date: ISABEL BOSTON [place] [address]EQ: 08/11/2018 Tertiary NOT GIVENUNK Whit Insurance:SELF PAY [facility] Number: Effective Repository Date:2018-08-05 08/06/2018 JUANCHO DIGNINDOB: Primary JUANCHO DIGNINDOB: Mu-Ism Insurance:MedicarePol [id number] [facility] icy Number: Effective [facility] System [address] [place] [address] Date:2018-08-06 - [address] [place] [address] Repository [address]Eih: [id number] [address]Kqu: Name:CD:[id number] () [id number], [place] ()Tel: [phone]: [phone] 08/06/2018 Secondary SAUL [facility] Insurance:COMMERCIAL DIGNINDOB: [facility] [id number] System Number: Effective [facility] Repository Date:2018-08-06 - [address] [place] [address] [id number] [address]Shd: Name:CD:[id number] CORPORATE DARVIN, ()Tel: [phone]: 000-0000 (WP) 08/06/2018 JUANCHO DIGNINDOB: Primary JUANCHO DIGNINDOB: [place] [facility] [id number] [place] [address] icy Number: [facility] Repository [address] [place] [address] [id number] [place] [address] [id number]: Date:Plan Name:[facility] [id number]: A () () 08/06/2018 Secondary [facility] DIGNINDOB: [place] Insurance:MedicarePol [id number] [facility] icy Number: [facility] Repository [id number] [address], [place] Date:Plan Name:[facility] [id number]: B () 08/06/2018 Tertiary [facility] Insurance:CommercialP DIGNINDOB: [facility] Number: [id number] Repository [id number] Date:Plan Name:Health 08/05/2018 SAUL El Primary RAEVN Whit [id number] Insurance:MEDICARE DIGNINDOB: [address] PART A [facility] [id number] Hospital [address]Wqc: (419) Number: Repository [phone] () [id number] Date:2018-08-04 08/05/2018 Secondary SAUL [place] Insurance:NATIONAL DIGNINDOB: Community [facility] [id number] Hospital Number: Repository [id number] Date: COR[place]ONNIE BOSTON [place] [address]RN: 08/05/2018 Tertiary NOT GIVENUNK [place] Insurance:SELF [facility]Y [facility] Hospital Number: Effective Repository Date:2018-08-05 07/22/2018 SAUL El Primary RAVEN [place] [id number] CR Insurance:MEDICARE DIGNINDOB: [address] PART A [facility] [id number] Hospital [address]Myb: (419) Number: Repository [phone] () [id number] Date:2018-07-09 07/22/2018 Secondary SAUL [place] Insurance:NATIONAL DIGNINDOB: [facility] [id number] Hospital Number: Repository [id number] Date: ISABEL BOSTON [place] 402[address]UA: 07/22/2018 Tertiary NOT GIVENUNK [place] Insurance:SELF PAY [facility] Number: Effective Repository Date:2018-07-09 07/22/2018 SAUL El Primary RAVEN [place] [id number] CR Insurance:MEDICARE DIGNINDOB: [address] PART A [facility] [id number] Hospital [address]Vxg: (419) Number: Repository [phone] () [id number] Date:2018-07-09 07/22/2018 Secondary SAUL El [place] Insurance:NATIONAL DIGNINDOB: [facility] [id number] Hospital Number: Repository [id number] Date: ISABEL BOSTON [place] [address]450YH: 07/22/2018 Tertiary NOT GIVENUNK [place] Insurance:SELF PAY [facility] Number: Effective Repository Date:2018-07-22 12/21/2017 RAVEN Primary [facility] DIGNINDOB: Insurance:MEDICARE A DIGNINDOB: [place] [id number] AND olic Number: [id number] [facility] [id number] [address] Date:[id number] Repository [address]Qin: 419) Name:[place] [address]Tel: () [phone] () 12/21/2017 Secondary SAUL [place] Insurance:NATIONAL DIGNINDOB: University [facility] [id number] [facility] Number: [id number] [place], [place] Repository [id number]: ([phone]) Date:3422-20-75Spcb [phone] () Name:MANAGED [id number] CORPORATE MD DARVIN 89699KM: 12/10/2017 JUANCHO DIGNINDOB: Primary JUANCHO DIGNINDOB: Mu-Is[place] Insurance:MedicarePol [id number] [facility] icy Number: Effective [facility] [address] [place] [address] Date:2017-12-[address] [place] [address] Repository [address]Alc: [id number] [address]Tel: Name:[id number] BOX () [id number], [place] ()Tel: [phone]: [phone] ([phone] 12/10/2017 Secondary SAUL El [place] Insurance:COMMERCIAL DIGNINDOB: [facility] [id number] System Number: Effective [facility] Repository Date:2017-12-10 - [address] [place] [address] [id number]: Name:CD:[id number] CORPORATE DARVIN ()Tel: [phone]: 000-0000 (WP) 12/10/2017 JUANCHO DIGNINDOB: Primary JUANCHO DIGNINDOB: [place] Insurance:MedicarePol [id number] [facility] icy Number: Effective [facility] [address] [place] [address] Date:2017-12-10 - [address] [place] [address] Repository [address]Gza: [id number] [address]Tel: Name:CD:[id number] [address]OX (HP) [id number], [place] (HP)Tel: [phone]) [phone]: (WP) [phone] 12/10/2017 Secondary SAUL Nik[place] Mu-Ism Insurance:ANTHEMPolic DIGNINDOB: [facility] y Number: Effective [id number] System Date:2017-12-10 - [facility] Repository [id number] [address] [place] [address] Name:Jack Heard [id number]: NESTOR RAMIREZ [address]UN: [phone]) (HP) [phone] (WP) 12/09/2017 JUANCHO DIGNINDOB: Primary JUANCHO DIGNINDOB: Mu-Ism Insurance:1500 [id number] [facility] [address] [place] [address] PRIMARYPolicy Number: [address] [place] [address] Repository [id number]: Effective [id number]: Date:2017-11-30 - (HP) [id number] ()Tel: (000) Name:CD:[id number] O 000-0000 () [address] [address] [address]FL: 12/09/2017 Secondary SAUL [employer] Insurance:1500 DIGNINDOB: [facility] ANTHEMPolicy Number: [id number] System Effective [facility] Repository Date:2017-11-30 - [address] [place] [address] [id number]: Name:CD:[id number] [address]TCKZDVL, [place] (HP)Tel: [phone]: (WP) [phone]
== END 2018-10-21 14:00 | disposition home or self-care (01) ==
LOC: SDC 08:25 → AC 08:27
PROVIDERS: Family Provider Family Medicine; PCP Family Medicine; Referring Provider Surgery; Visit Provider Surgery
PROC: (CPT 36478; principal; 2018-10-21 09:45)
DX: I83.12 Varicose veins of left lower extremity with inflammation (principal); I87.2 Venous insufficiency (chronic) (peripheral); I10 Essential (primary) hypertension; Z79.82 Long term (current) use of aspirin; Z79.899 Other long term (current) drug therapy
CPT/HCPCS: 36478; 36479; 80048; 85027; J7040; J7120; J2405